=== PATIENT | male | born 1975 | race Caucasian/White ===

== ENCOUNTER 2016-07-24 19:33 | Emergency (ER) | payer BC, MEDICAID ==
[2016-07-24 20:39] VITALS: BP 162/104
[2016-07-24] MEDS ORDERED: Albuterol/Ipratropium 3.0-0.5 MG/3 ML Neb Soln NEB ONE (21:13)
--- NOTE | 2016-07-24 21:17 | EDM.PDOC ---
ED HISTORY OF PRESENT ILLNESS - General Chief Complaint: Respiratory Problem Stated Complaint: SOB Time Seen by Provider: 07/24/16 21:02 Source: Reports: Patient History Limitations: Reports: No limitations - History of Present Illness INITIAL COMMENTS - FREE TEXT/NARRATIVE: This patient comes in with upper respiratory symptoms. He said this happens periodically. He complains of a lot of wheezing and cough. Sometimes he coughs so hard that he completely loses his breath. The cough is nonproductive. He has an inhaler that's left over from a illness a couple years ago he says it's still has medication in it but it doesn't seem to help too much. He complains of a fever off-and-on today. He has a sore throat has a headache body aches for 3 days. He did not get a flu shot. - Related Data Allergies/ADRs: Allergies Allergy/AdvReac Type Severity Reaction Status Date / Time Penicillins Allergy Intermediate Hives Verified 07/24/16 20:44 Home Meds: Home Meds NK [No Known Home Meds] 10/03/13 [History] Social & Family History - Tobacco Use Smoking Status *Q: Never Smoker Second Hand Smoke Exposure: No - Caffeine Use Caffeine Use: Reports: Coffee, Soda - Alcohol Use Days Per Week of Alcohol Use: 1 Number of Drinks Per Day: 2 Total Drinks Per Week: 2 - Recreational Drug Use Recreational Drug Use: Yes ED ROS GENERAL - Review of Systems Review Of Systems: See Below Constitutional: Reports: fever, chills HEENT: Reports: Throat pain Respiratory: Reports: shortness of breath, wheezing Cardiovascular: Reports: No symptoms Endocrine: Reports: no symptoms GI/Abdominal: Reports: No symptoms : Reports: no symptoms Musculoskeletal: Reports: muscle pain Skin: Reports: no symptoms Neurological: Reports: no symptoms ED EXAM, GENERAL - Physical Exam Exam: See Below Exam Limited By: No limitations General Appearance: alert, WD/WN, mild distress Eye Exam: bilateral eye: normal inspection Nose: normal inspection Throat/Mouth: Normal inspection Head: atraumatic Neck: normal inspection Respiratory/Chest: no respiratory distress, lungs clear (Seems to have fairly good air movement no wheezes were heard he still feels a little short of breath however) Cardiovascular: normal peripheral pulses, regular rate, rhythm, no murmur Peripheral Pulses: 2+: radial (L), radial (R) GI/Abdominal: non tender Back Exam: normal inspection Extremities: normal inspection Neurological: alert, oriented Psychiatric: normal affect Skin Exam: Warm, Dry Course - Vital Signs Last Recorded V/S: Last Vital Signs Temp 36.0 C 07/24/16 20:42 Pulse 80 07/24/16 20:42 Resp 16 07/24/16 20:42 BP 162/104 H 07/24/16 20:42 Pulse Ox 94 L 07/24/16 20:42 - Orders/Labs/Meds Orders: Active Orders 24 hr Category Date Time Status RT Aerosol Therapy [RC] ASDIRECTED Care 07/24/16 21:13 Active Chest 2V [CR] Urgent Exams 07/24/16 21:12 Taken INFLUENZA A+B AG SCREEN [RM] Urgent Lab 07/24/16 21:13 Uncollected Labs: Laboratory Tests 07/24/16 07/24/16 Range/Units 21:20 21:20 WBC 6.9 (4.5-11.0) K/uL RBC 5.64 (4.30-5.90) M/uL Hgb 16.8 H (12.0-15.0) g/dL Hct 46.7 (40.0-54.0) % MCV 83 (80-98) fL MCH 30 (27-31) pg MCHC 36 (32-36) % Plt Count 179 (150-400) K/uL Neut % (Auto) 62 (36-66) % Lymph % (Auto) 19 L (24-44) % [place] % (Auto) 15 H (2-6) % Eos % (Auto) 4 (2-4) % Baso % (Auto) 0 (0-1) % Sodium 140 (140-148) mmol/L Potassium 4.0 (3.6-5.2) mmol/L Chloride 103 (100-108) mmol/L Carbon Dioxide 28 (21-32) mmol/L Anion Gap 8.8 (5.0-14.0) mmol/L BUN 12 (7-18) mg/dL Creatinine 1.2 (0.8-1.3) mg/dL Est Cr Clr Drug Dosing 90.63 mL/min Estimated GFR (MDRD) > 60 (>60) Glucose 119 H (74-106) mg/dL Calcium 9.1 (8.5-10.1) mg/dL Meds: Medications Discontinued Medications Generic Name Dose Route Start Last Admin Trade Name Carissa PRN Reason Stop Dose Admin Albuterol/Ipratropium 3 ml 07/24/16 21:13 07/24/16 21:18 Duoneb 3.0-0.5 Mg/3 Ml NEB 07/24/16 21:14 3 ml ONETIME ONE Administration - Re-Assessments/Exams Free Text/Narrative Re-Assessment/Exam: 07/24/16 22:54 The patient had a nebulizer treatment and said that he felt much better. He did not have any wheezing prior to this however. He said it seemed to work a lot better than his inhaler. He certainly has plenty of medicine in the inhaler. Departure - Departure Time of Disposition: 22:56 Disposition: Home, Self-Care 01 Condition: fair Clinical Impression: Strep pharyngitis, Asthmatic bronchitis Forms: ED Department Discharge Additional Instructions: Take the antibiotic azithromycin as directed area and this will kill the strep. After 24 hours on the antibiotic you will no longer be contagious. Continue using your own inhaler. Take the prednisone as directed 10 mg 4 tablets a day for 5 days. This helps relieve inflammation which should give a lot of relief to the breathing difficulty. See your Dr. if no better in 2 or 3 days - My Orders Last 24 Hours: My Active Orders 07/24/16 21:12 Chest 2V [CR] Urgent 07/24/16 21:13 RT Aerosol Therapy [RC] ASDIRECTED INFLUENZA A+B AG SCREEN [RM] Urgent - Assessment/Plan Last 24 Hours: My Active Orders 07/24/16 21:12 Chest 2V [CR] Urgent 07/24/16 21:13 RT Aerosol Therapy [RC] ASDIRECTED INFLUENZA A+B AG SCREEN [RM] Urgent
--- NOTE | 2016-07-25 10:25 | CR ---
Chest 2V HISTORY: No Clinical Info FINDINGS: Heart size within normal limits. Pulmonary vasculature within normal limits. No evidence f or focal consolidation or cardiopulmonary process. IMPRESSION: No radiographic evidence for acute cardiopulmonary process.
== END 2016-07-24 23:25 | disposition home or self-care (01) ==
LOC: JP.ED 19:33
DX: J45.909 Unspecified asthma, uncomplicated (principal); J02.0 Streptococcal pharyngitis; Z88.0 Allergy status to penicillin
CPT/HCPCS: 36415; 71020; 80048; 85025; 87430; 99284; J7620

== ENCOUNTER 2017-01-20 08:16 | Day surgery (SDC) | payer BC ==
[~2017-01-20 08:16] MED LIST: Dextrose 5%-Lactated Ringers 1,000 ML IV SCH
[2017-01-20] MEDS ORDERED: Glycopyrrolate 0.2 MG/ML 2 ML SDV IVPUSH ONE (09:30)
[2017-01-20] MEDS ORDERED: Midazolam 1 MG/ML 2 ML SDV ONE (10:14)
[2017-01-20] MEDS ORDERED: Propofol 200 MG/20 ML SDV ONE (10:14)
[2017-01-20] MEDS ORDERED: fentaNYL 100 MCG/2 ML SDV ONE (10:14)
[2017-01-20] MEDS ORDERED: Pantoprazole 40 MG Vial IVPUSH ONE (10:57)
[2017-01-20 12:30] VITALS: BP 126/75
--- NOTE | 2017-01-23 09:46 | OR ---
DATE OF PROCEDURE: 01/20/2017 PREOPERATIVE DIAGNOSIS: Symptoms of irritated throat and intermittent cough. POSTOPERATIVE DIAGNOSES: 1. Symptoms of irritated throat and intermittent cough. 2. Small hiatal hernia with active gastroesophageal reflux disease. 3. Mild antral gastritis and duodenitis. OPERATIVE PROCEDURES: Esophagogastroduodenoscopy with: 1. Biopsy of esophagogastric junction for histologic evaluation. 2. Biopsies of antrum for CLOtest. ANESTHESIA: IV sedation. INDICATIONS FOR PROCEDURE: This is a 41-year-old presenting with more or less persistent problems with a sense of throat irritation and intermittently had periods of persistent cough. He is not presently on any antisecretory medications. Plan is to proceed with upper GI endoscopy with biopsies as indicated. Potential risks including bleeding and perforation were discussed, and the patient wishes to proceed. DETAILS OF PROCEDURE: The patient was taken to the operating room and placed in left lateral decubitus position. IV sedation was administered, after which the upper GI endoscope was passed orally through the length of the esophagus and into the stomach with retroflexion view of the fundus, and thereafter through the pyloric channel into the junction of the third and fourth portions of the duodenum. Findings included some mild redness in the hypopharynx, larynx, and especially piriform sinuses. The upper esophageal sphincter and esophageal body were otherwise unremarkable. There was a small, roughly 1 cm hiatal hernia. There was active gastroesophageal reflux disease present with a healing erosion extending over around 2 cm up from esophagogastric junction. There was no stricturing or gross evidence of neoplasia. Remainder of the stomach showed some mild redness in the antrum. This redness and friability continued into the duodenum beyond the duodenal bulb and normalized. Biopsies were then obtained from the antrum and sent for CLOtest for H. pylori. Multiple biopsies were then obtained from the gastroesophageal junction and sent for histologic evaluation. No bleeding from the biopsy sites was seen and the procedure then concluded. The patient will be given Protonix 40 mg IV push in the recovery room and then to begin on 40 mg of Protonix daily. We will see the patient back on 02/08/2017 to see if this is improving his symptoms. It will often take a fairly extended period of several weeks to months before the respiratory symptoms, that the patient is describing, tend to be improved with treatment of the reflux. Mike Cagle MD /[id number]
== END 2017-01-20 13:00 | disposition home or self-care (01) ==
LOC: JP.SDS 08:16 → EEVIPCON 09:30 → JP.SDS 13:00
PROVIDERS: ATTEND Surgery
DX: K22.8 Other specified diseases of esophagus (principal); K44.9 Diaphragmatic hernia without obstruction or gangrene; K21.9 Gastro-esophageal reflux disease without esophagitis; K29.80 Duodenitis without bleeding
CPT/HCPCS: 43239; 87081; C9113; J2250; J2704; J3010; J7042; 88305; J3490

== ENCOUNTER 2019-03-09 19:53 | Emergency (ER) | payer BC ==
[2019-03-09 20:27] VITALS: BP 152/98; PULSE 90
--- NOTE | 2019-03-09 21:12 | EDM.PDOC ---
ED HPI GENERAL MEDICAL PROBLEM - General Chief Complaint: Lower Extremity Injury/Pain Stated Complaint: LEFT LEG PAIN Time Seen by Provider: 03/09/19 20:45 Source of Information: Reports: Patient - History of Present Illness INITIAL COMMENTS - FREE TEXT/NARRATIVE: 43 year old male present to ER with acute left calf pain which started this evening when walking up a ditch pulling out a dock when he slipped and his foot was forcefully dorsi flexed resulting in significant pop in his calf with subsequent pain and swelling. Patient is unable to walk due to the pain. He was unable to drive due to pain. Patient is self-employed removing docks/ lifts. Patient has not taken any medications for pain. Patient has no ankle pain or other injuries. - Related Data Allergies Allergy/AdvReac Type Severity Reaction Status Date / Time Penicillins Allergy Intermediate Hives Verified 03/09/19 20:29 Home Meds: Home Meds Albuterol [Ventolin HFA] 1 - 2 puff IH Q4H PRN 01/18/17 [History] Ibuprofen 200 mg PO ASDIRECTED PRN 01/18/17 [History] Acetaminophen/HYDROcodone [[place] 325-5 MG] 1 - 2 tab PO Q6H PRN 5 Days #20 tab 03/09/19 [Rx] Naproxen 500 mg PO Q8H 10 Days #40 tablet 03/09/19 [Rx] Past Medical History Cardiovascular History: Reports: Hypertension Other Cardiovascular History: no currently taking medications for blood pressure Respiratory History: Reports: Asthma Gastrointestinal History: Reports: Other (See Below) Other Gastrointestinal History: burning feeling in esophagus; feels like something is "lodged" there Psychiatric History: Reports: Anxiety Endocrine/Metabolic History: Reports: Obesity/BMI 30+ Social & Family History - Tobacco Use Smoking Status *Q: Never Smoker - Caffeine Use Caffeine Use: Reports: Coffee, Soda Review of Systems - Review of Systems Review Of Systems: ROS reveals no pertinent complaints other than HPI. ED EXAM, GENERAL - Physical Exam Exam: See Below Exam Limited By: No Limitations General Appearance: Alert, WD/WN, Moderate Distress Eye Exam: Bilateral Eye: EOMI Ears: Normal External Exam, Normal Canal, Hearing Grossly Normal Nose: Normal Inspection, Normal Mucosa Throat/Mouth: Normal Inspection, Normal Lips, Normal Teeth, No Airway Compromise Head: Atraumatic, Normocephalic Neck: Normal Inspection, Supple, Non-Tender Respiratory/Chest: No Respiratory Distress, Lungs Clear, Normal Breath Sounds, Chest Non-Tender Cardiovascular: Normal Peripheral Pulses, Regular Rate, Rhythm, No Edema, No Gallop, No JVD, No Murmur, No Rub Peripheral Pulses: 4+: Posterior Tibial (L), Dorsalis Pedis (L) Back Exam: Normal Inspection, Full Range of Motion, NT Extremities: Leg Pain (Left Leg significant swelling noted entire calf with signficant pain to palpation. Skin intake. No pain to palpation or bogginess over achilles tendon) Neurological: Alert, Oriented, CN II-XII Intact, Normal Cognition, Normal Gait, Normal Reflexes, No Motor/Sensory Deficits Psychiatric: Normal Affect, Normal Mood Skin Exam: Warm, Dry, Intact, Normal Color, No Rash Course - Vital Signs Last Recorded V/S: Last Vital Signs Temp 37.3 C 03/09/19 20:38 Pulse 90 03/09/19 20:38 Resp 20 03/09/19 20:38 BP 152/98 H 03/09/19 20:38 Pulse Ox 95 03/09/19 20:38 - Orders/Labs/Meds Orders: Active Orders 24 hr Category Date Time Status Acetaminophen/HYDROcodone [[place] 325-5 MG] Med 03/09/19 21:15 Once 2 tab PO ONETIME ONE Ibuprofen [Motrin] Med 03/09/19 21:16 Once 800 mg PO ONETIME ONE DME for Discharge [COMM] Urgent Oth 03/09/19 21:00 Ordered Departure - Departure Time of Disposition: 21:13 Disposition: Home, Self-Care 01 Clinical Impression: Traumatic rupture of left gastrocnemius muscle, Rupture of muscle - Discharge Information Prescriptions: Acetaminophen/HYDROcodone [[place] 325-5 MG] 1 - 2 tab PO Q6H PRN 5 Days #20 tab PRN Reason: Pain (Severe 7-10) Naproxen 500 mg PO Q8H 10 Days #40 tablet Instructions: Crutch Use, Adult, [id number], Cryotherapy, Muscle Strain, Medial Head Gastrocnemius Tear, Pain Medicine Instructions, [id number] Referrals: Wes Kaur MD [Primary Care Provider] - Forms: ED Department Discharge Additional Instructions: 1. Leave Splint in place until follow-up with Orthopedic clinic. 2. Naproxen 500mg every 8-12 hors for swelling and inflammation with food x 5 days then as needed 3. [place] 1-2 tablets every 6hours for moderate to severe pain #20 given. 4. Elevate as much as possible. 5. Use crutches may toe touch to keep balance but limited weight bearing. 6. Call Orthopedic clinic Monday am for appointment available this week for assessment and additional treatment instructions. 7. Return to ER if pain becomes more severe or foot become cool to touch due to concern regarding compartment syndrome. - My Orders Last 24 Hours: My Active Orders 03/09/19 21:00 DME for Discharge [COMM] Urgent 03/09/19 21:15 Acetaminophen/HYDROcodone [[place] 325-5 MG] 2 tab PO ONETIME ONE 03/09/19 21:16 Ibuprofen [Motrin] 800 mg PO ONETIME ONE - Assessment/Plan Last 24 Hours: My Active Orders 03/09/19 21:00 DME for Discharge [COMM] Urgent 03/09/19 21:15 Acetaminophen/HYDROcodone [[place] 325-5 MG] 2 tab PO ONETIME ONE 03/09/19 21:16 Ibuprofen [Motrin] 800 mg PO ONETIME ONE
[2019-03-09] MEDS ORDERED: Acetaminophen/HYDROcodone 325-5 MG Tab PO ONE (21:15)
[2019-03-09] MEDS ORDERED: Ibuprofen 800 MG Tab PO ONE (21:16)
== END 2019-03-09 22:14 | disposition home or self-care (01) ==
LOC: JP.ED 19:53
DX: S86.812A Strain of other muscle(s) and tendon(s) at lower leg level, left leg, initial encounter (principal); I10 Essential (primary) hypertension; J45.909 Unspecified asthma, uncomplicated; E66.9 Obesity, unspecified; Z68.32 Body mass index [BMI] 32.0-32.9, adult; Z88.1 Allergy status to other antibiotic agents; X50.9XXA Other and unspecified overexertion or strenuous movements or postures, initial encounter; Y93.01 Activity, walking, marching and hiking
CPT/HCPCS: 99283

== ENCOUNTER 2021-07-16 13:43 | Emergency (ER) | payer BC ==
[2021-07-16] MEDS ORDERED: Propofol 200 MG/20 ML SDV ONE (13:53)
[2021-07-16 13:55] VITALS: BP 138/50; PULSE 63
[2021-07-16] MEDS ORDERED: Acetaminophen/HYDROcodone 325-10 MG Tab PO ONE (14:35)
[2021-07-16] MEDS ORDERED: Ketorolac 30 MG/ML SDV IVPUSH ONE (14:36)
== END 2021-07-16 14:50 | disposition home or self-care (01) ==
LOC: JP.ED 13:43
DX: S43.005A Unspecified dislocation of left shoulder joint, initial encounter (principal); I10 Essential (primary) hypertension; E66.9 Obesity, unspecified; Z88.0 Allergy status to penicillin; W00.9XXA Unspecified fall due to ice and snow, initial encounter
CPT/HCPCS: 23650; 73020-26-LT; 73020-LT; 96374; 99282; 99283-25; A9270-GY; J1885; J2704